=== PATIENT | female | born 1995 ===

== ENCOUNTER 2024-11-10 00:02 | Emergency (ER) | payer MEDICAID ==
[2024-11-10 00:42] LABS: BASOPHILS ABSOLUTE AUTO 0.03 10^3/uL (0.00-0.50); BASOPHILS PERCENT AUTO 0.5 % (0-1); EOSINOPHILS ABSOLUTE AUTO 0.30 10^3/uL (0.00-1.50); EOSINOPHILS PERCENT AUTO 4.7 % (0-6); IMMATURE GRAN ABSOLUTE AUTO 0.00 10^3/uL (0.00-0.49); IMMATURE GRAN PERCENT AUTO 0.0 % (0.0-4.9); LYMPHOCYTES ABSOLUTE AUTO 2.86 10^3/uL (0.60-5.00); LYMPHOCYTES PERCENT AUTO 45.0 % (24-44); MONOCYTES ABSOLUTE AUTO 0.38 10^3/uL (0.00-1.50); MONOCYTES PERCENT AUTO 6.0 % (0-10); NEUTROPHILS ABSOLUTE AUTO 2.78 x10^3/uL (1.80-8.00); NEUTROPHILS PERCENT AUTO 43.8 % (41-71); PLATELET COUNT,PLT 261 10^3/uL (150-400); RED BLOOD CELL COUNT 4.34 x10^6/uL (4.00-5.50); WHITE BLOOD CELL COUNT,WBC 6.4 10^3/uL (4.0-11.0)
[2024-11-10 00:43] LABS: APPEARANCE,URINE CLEAR (CLEAR); GLUCOSE,URINE NEGATIVE (NEGATIVE); OCCULT BLOOD,URINE TRACE-INTACT (NEGATIVE)
[2024-11-10 00:49] LABS: SQUAMOUS EPITHELIAL CELLS,UR FEW /HPF (NOT SEEN)
[2024-11-10 00:50] LABS: ALANINE AMINOTRANSFERASE,ALT 26.0 U/L (12-78); ASPARTATE AMNIOTRANSFERASE,AST 15.0 U/L (15-37); BILIRUBIN TOTAL 0.3 mg/dL (0.0-1.0); BLOOD UREA NITROGEN,BUN 7.0 mg/dL (7-18); CARBON DIOXIDE,CO2 26.0 mmol/L (21-32); CHLORIDE,CL 104.0 mEq/L (98-106); CREATININE 0.7 mg/dL (0.6-1.0); EST CRCL DRUG DOSING (CG) 111.01 mL/min; GLUCOSE RANDOM 147.0 mg/dL (75-99); POTASSIUM,K 3.4 mEq/L (3.5-5.0); PROTEIN TOTAL,TP 7.4 g/dL (6.4-8.2); SODIUM,NA 141.0 mEq/L (136-145)
[2024-11-10 00:51] LABS: ESTIMATED GFR 120.0 mL/min (>=60)
[2024-11-10] MEDS: Potassium Chloride 20 MEQ Tab.ER PO ONE (00:58)
== END 2024-11-10 01:10 | disposition home or self-care (01) ==
LOC: CC.ED 00:02
DX: E87.6 Hypokalemia (principal); E83.42 Hypomagnesemia; Z79.899 Other long term (current) drug therapy
CPT/HCPCS: 36415; 80053; 81001; 83735; 84703; 85025; 87426-QW; 99284; A9270-GY

== ENCOUNTER 2024-11-17 01:58 | Emergency (ER) | payer MEDICAID ==
[2024-11-17 02:53] LABS: APPEARANCE,URINE CLEAR (CLEAR); GLUCOSE,URINE NEGATIVE (NEGATIVE); OCCULT BLOOD,URINE TRACE-INTACT (NEGATIVE)
[2024-11-17 02:57] LABS: BASOPHILS ABSOLUTE AUTO 0.03 10^3/uL (0.00-0.50); BASOPHILS PERCENT AUTO 0.5 % (0-1); EOSINOPHILS ABSOLUTE AUTO 0.25 10^3/uL (0.00-1.50); EOSINOPHILS PERCENT AUTO 3.9 % (0-6); IMMATURE GRAN ABSOLUTE AUTO 0.00 10^3/uL (0.00-0.49); IMMATURE GRAN PERCENT AUTO 0.0 % (0.0-4.9); LYMPHOCYTES ABSOLUTE AUTO 2.16 10^3/uL (0.60-5.00); LYMPHOCYTES PERCENT AUTO 33.9 % (24-44); MONOCYTES ABSOLUTE AUTO 0.50 10^3/uL (0.00-1.50); MONOCYTES PERCENT AUTO 7.8 % (0-10); NEUTROPHILS ABSOLUTE AUTO 3.44 x10^3/uL (1.80-8.00); NEUTROPHILS PERCENT AUTO 53.9 % (41-71); PLATELET COUNT,PLT 212 10^3/uL (150-400); RED BLOOD CELL COUNT 4.17 x10^6/uL (4.00-5.50); WHITE BLOOD CELL COUNT,WBC 6.4 10^3/uL (4.0-11.0)
[2024-11-17 03:05] LABS: ALANINE AMINOTRANSFERASE,ALT 28 U/L (12-78); ASPARTATE AMNIOTRANSFERASE,AST 18 U/L (15-37); BILIRUBIN TOTAL 0.4 mg/dL (0.0-1.0); BLOOD UREA NITROGEN,BUN 12 mg/dL (7-18); CARBON DIOXIDE,CO2 27 mmol/L (21-32); CHLORIDE,CL 106 mEq/L (98-106); CREATININE 0.7 mg/dL (0.6-1.0); EST CRCL DRUG DOSING (CG) 111.62 mL/min; GLUCOSE RANDOM 130 mg/dL (75-99); POTASSIUM,K 3.2 mEq/L (3.5-5.0); PROTEIN TOTAL,TP 6.8 g/dL (6.4-8.2); SODIUM,NA 143 mEq/L (136-145)
[2024-11-17 03:06] LABS: ESTIMATED GFR 120 mL/min (>=60)
[2024-11-17] MEDS: Potassium Chloride 20 MEQ Tab.ER PO ONE (03:22)
== END 2024-11-17 03:42 | disposition home or self-care (01) ==
LOC: CC.ED 01:58
DX: F41.9 Anxiety disorder, unspecified (principal); E87.6 Hypokalemia; Z79.899 Other long term (current) drug therapy
CPT/HCPCS: 36415; 71045; 80053; 81001; 81025; 83735; 84484; 85025; 85379; 86140; 93005; 93010; 99284; 99285; A9270-GY